=== PATIENT | female | born 1970 | race Caucasian/White ===

== ENCOUNTER 2021-07-26 09:32 | Outpatient (REF) | payer OTHER, SELFPAY ==
[2021-07-26 11:31] LABS: Appearance Urine CLOUDY; Color Urine YELLOW; Glucose Urine UA NEG (NEG); Leukocyte Esterase Urine NEG (NEG); Nitrite Urine NEG (NEG); PH 5.5 (5.0-8.0); Specific Gravity - Urine >= 1.030 (1.005-1.025); Urine Blood NEG (NEG); Urine Ketones NEG (NEG); Urine Protein NEG (NEG-TRACE)
[2021-07-26 11:31] LABS: Hematocrit 42.2 % (37.0-47.0); Hemoglobin 14.1 g/dl (12.0-16.0); Mean Corpuscular HGB Conc 33.4 g/dl (31.0-35.0); Mean Corpuscular Hemoglobin 30.1 pg (27.0-33.0); Mean Platelet Volume 9.7 fL (9.4-12.3); Platelet Count 238 X10*3/uL (160-400); Red Blood Count 4.69 X10*6/uL (4.20-5.50); Red Cell Distribution Width 12.2 % (11.0-16.0); White Blood Count 4.5 X10*3/uL (4.8-10.8)
[2021-07-26 11:52] LABS: Amorphous Sediment Urine 4+ /LPF; RBC Urine 0 /HPF (0); Squamous Epithelial Cell Urine 1+ /LPF; WBC Urine 0-2 /HPF (0-4)
[2021-07-26 11:59] LABS: Alanine Aminotransferase 28 U/L (0-31); Albumin Level 4.2 g/dL (3.5-5.0); Alkaline Phosphatase 61 U/L (39-117); Anion Gap 13 (12-20); Aspartate Amino Transferase 26 U/L (5-31); Bilirubin Total 0.8 mg/dL (0.0-1.0); Blood Urea Nitrogen 16 mg/dL (9-16); Calcium 9.2 mg/dL (8.4-10.2); Carbon Dioxide 26 mmol/L (22-29); Chloride 107 mmol/L (96-108); Cholesterol 198 mg/dL; Estimated Glomerular Filt Rate > 60; Glucose Fasting 89 mg/dL (60-99); HDL Cholesterol 56 mg/dL; LDL Cholesterol Calculated 128 mg/dl; Potassium 4.4 mmol/L (3.3-5.1); Sodium 142 mmol/L (135-145); Total Protein 6.6 g/dL (6.5-8.0); Triglycerides 73 mg/dL
[2021-07-26 12:22] LABS: TSH reflex Free T4 1.08 uIU/mL (0.32-4.0)
== END 2021-07-26 09:33 | disposition home or self-care (01) ==
LOC: HO.HMGCLDS 09:32
PROVIDERS: PCP Internal Medicine; Visit Provider Internal Medicine
DX: Z00.00 Encounter for general adult medical examination without abnormal findings (principal)
CPT/HCPCS: 36415; 80053; 80061; 81001; 84443; 85027

== ENCOUNTER 2021-08-01 12:00 | Outpatient (REF) | payer OTHER, SELFPAY ==
[2021-08-05 21:50] LABS: HPV mRNA E6/E7 Not Detected (Not Detected)
== END 2021-08-01 12:01 | disposition home or self-care (01) ==
LOC: HO.LAB 12:00
PROVIDERS: Visit Provider Internal Medicine
DX: Z12.4 Encounter for screening for malignant neoplasm of cervix (principal); Z11.51 Encounter for screening for human papillomavirus (HPV)
CPT/HCPCS: 87624; 88142

== ENCOUNTER 2021-08-29 08:41 | Outpatient (REF) | payer OTHER, SELFPAY ==
--- NOTE | ~2021-08-29 | US_ITS ---
EXAMINATION: US SOFT TISSUE NECK CLINICAL INFORMATION: Swelling of the left submandibular gland COMPARISON: None TECHNIQUE: Ultrasound of the neck soft tissues is performed with high- frequency bunn-scale imaging and color Doppler. FINDINGS: In the patient's area of concern of the left neck, there are multiple small lymph nodes with normal morphology. The largest measures 0.8 cm. In the contralateral area of the right neck, there are multiple lymph nodes with normal morphology. Incidental note is made of a 0.9 cm heterogeneous thyroid nodule. US/US soft tiss head and/or neck IMPRESSION: 1. Bilateral cervical lymph nodes. 2. Right thyroid nodule. Consider dedicated thyroid ultrasound for further evaluation if warranted.
== END 2021-08-29 08:42 | disposition home or self-care (01) ==
LOC: HO.HMGCX 08:41
PROVIDERS: Visit Provider Internal Medicine
DX: R60.9 Edema, unspecified (principal)
CPT/HCPCS: 76536

== ENCOUNTER 2021-11-08 10:15 | Outpatient (REF) | payer OTHER, SELFPAY ==
--- NOTE | ~2021-11-08 | MM_ITS ---
EXAMINATION: MM SCREENING DIGITAL BREAST TOMOSYNTHESIS, BILATERAL CLINICAL INFORMATION: Screening. Asymptomatic. The lifetime risk of breast cancer based on the Tyrer-Cuzick Model is 10%. COMPARISON: Mammography: 07/12/2015 , 08/01/2013, 07/28/2012 TECHNIQUE: Digital breast tomosynthesis is performed in both the craniocaudal and mediolateral oblique views along with computer-aided detection (CAD). Synthesized 2D images are generated from the tomosynthesis. Additional left CC view is provided. FINDINGS: There are scattered areas of fibroglandular density (ACR BI-RADS breast composition Category b). The right breast is similar to prior studies. There is no interval mass or architectural abnormality or developing density. Neither breast shows abnormal calcifications. The bilateral axilla and skin contours are unremarkable. Left breast has focal nodular asymmetric density posterior upper outer quadrant on tomography measuring around 1.2 cm size and approximately 12 cm from nipple. Margins are incompletely defined. This could represent intramammary node. Chronicity is uncertain, possibly obscured by overlying parenchyma on remote prior standard mammography without tomography. MM/MM tomosynthesis screening BI IMPRESSION: 1. Left: Focal nodular asymmetric density posterior upper outer left breast on tomography. 2. Right: No mammographic evidence of malignancy. ASSESSMENT: BI-RADS 0: Incomplete - Need Additional Imaging Evaluation RECOMMENDATION: 1. Additional views of the left breast (spot exaggerated CC, spot MLO). 2. Targeted ultrasound if warranted after review of the additional views. 3. Radiology department staff will contact the patient for additional imaging. This patient's information was entered into a reminder system with a target due date for their next mammogram.
== END 2021-11-08 10:16 | disposition home or self-care (01) ==
LOC: HO.MAMMO 10:15
PROVIDERS: PCP Internal Medicine; Visit Provider Internal Medicine
DX: Z12.31 Encounter for screening mammogram for malignant neoplasm of breast (principal)
CPT/HCPCS: 77063; 77067

== ENCOUNTER 2021-11-28 14:33 | Outpatient (REF) | payer OTHER, SELFPAY ==
--- NOTE | ~2021-11-28 | US_ITS ---
EXAMINATION: MM DIAGNOSTIC DIGITAL BREAST TOMOSYNTHESIS, LEFT US DIAGNOSTIC ULTRASOUND BREAST, LEFT CLINICAL INFORMATION: Recall from screening for focal nodular asymmetric density posterior upper outer quadrant, possibly obscured by overlying parenchyma on remote prior standard mammography. COMPARISON: Mammography: 11/08/2021, 07/12/2015, 08/01/2013 TECHNIQUE: Digital breast tomosynthesis is performed. 2D images are generated from the tomosynthesis. The following views are obtained: Spot exaggerated CC x2, spot MLO. Ultrasound left breast is targeted to the upper outer quadrant. Grayscale imaging and color Doppler are performed without and with harmonics. FINDINGS: There are scattered areas of fibroglandular density (ACR BI-RADS breast composition Category b). There is a macrolobulated density in the posterior upper outer left breast corresponding to recent screening exam. No spiculation or associated calcification. It is difficult to determine if the finding was present on prior remote exams prior to embolization of tissue. This area may have been obscured on prior mammography. Targeted ultrasound upper outer left breast demonstrates no cystic or solid mass or intramammary node. No architectural abnormality. No ultrasound correlate. Results are discussed with the patient at time of visit. Management plan is for 6 month follow-up diagnostic left mammography. US/US breast LT limited IMPRESSION: Macrolobulated asymmetric density posterior upper outer left breast possibly obscured by overlying tissue on prior remote standard mammography. No spiculation or associated calcification. No ultrasound correlate. ASSESSMENT: BI-RADS 3: Probably Benign RECOMMENDATION: Diagnostic left mammography in 6 months. This patient's information was entered into a reminder system with a target due date for their next mammogram.
== END 2021-11-28 14:34 | disposition home or self-care (01) ==
LOC: HO.MAMMO 14:33
PROVIDERS: PCP Internal Medicine; Visit Provider Internal Medicine
DX: R92.2 Inconclusive mammogram (principal)
CPT/HCPCS: 76642; 77065

== ENCOUNTER → 2022-01-09 09:48 | Outpatient (BNVA) | payer OTHER, SELFPAY | PROVIDERS: PCP Internal Medicine; Referring Provider Internal Medicine; Visit Provider Nurse Practitioner | DX: Z01.818 Encounter for other preprocedural examination (principal) | CPT/HCPCS: 99202 ==

== ENCOUNTER 2022-05-29 13:49 | Outpatient (REF) | payer OTHER, SELFPAY ==
--- NOTE | ~2022-05-29 | MM_ITS ---
EXAMINATION: MM DIAGNOSTIC DIGITAL BREAST TOMOSYNTHESIS, LEFT CLINICAL INFORMATION: Short interval six-month follow-up focal nodular asymmetric density posterior upper outer left breast likely beyond field of view on more remote previous imaging. TC score 9%. No known family history breast cancer. COMPARISON: Mammography: 11/28/2021, 11/08/2021 (BI-RADS 0), 07/12/2015, 08/01/2013, 07/28/2012; left breast ultrasound 11/28/2021. TECHNIQUE: Digital breast tomosynthesis is performed in both the craniocaudal and mediolateral oblique views along with computer-aided detection (CAD). Synthesized 2D images are generated from the tomosynthesis. Additional left CC view is provided. FINDINGS: There are scattered areas of fibroglandular density (ACR BI-RADS breast composition Category b). Parenchymal pattern is similar to prior exam. The focal nodular asymmetric density posterior upper outer quadrant is stable from prior diagnostic exam. It is likely obscured by overlying fibroglandular tissue on more remote prior left MLO views and beyond field of view on prior remote left CC views. There is no developing density or interval architectural abnormality. Results are provided to the patient at time of visit by the technologist. MM/MM tomosynthesis diagnostic LT IMPRESSION: Stable focal asymmetric density posterior upper outer left breast, similar to prior diagnostic exam. ASSESSMENT: BI-RADS 3: Probably Benign RECOMMENDATION: Diagnostic mammography at time of bilateral annual mammography, due in 6 months. This patient's information was entered into a reminder system with a target due date for their next mammogram.
== END 2022-05-29 13:50 | disposition home or self-care (01) ==
LOC: HO.MAMMO 13:49
PROVIDERS: Visit Provider Internal Medicine
DX: R92.2 Inconclusive mammogram (principal)
CPT/HCPCS: 77061; 77065

== ENCOUNTER 2022-11-12 09:28 | Outpatient (REF) | payer OTHER, SELFPAY ==
--- NOTE | ~2022-11-12 | XR_ITS ---
EXAMINATION: XR CHEST CLINICAL INFORMATION: Cough. COMPARISON: None TECHNIQUE: 2 views of the chest were obtained. FINDINGS: No significant abnormality is noted involving the heart, lungs, mediastinum, bony thorax or soft tissues. XR/XR chest 2V IMPRESSION: No acute cardiopulmonary process.
--- NOTE | ~2022-11-12 | XR_ITS ---
EXAMINATION: XR SINUSES CLINICAL INFORMATION: Cough COMPARISON: None TECHNIQUE: 3 views of the sinuses were obtained. FINDINGS: Paranasal sinuses appear clear without air-fluid levels. No fractures are identified. No radiodense foreign bodies. XR/XR sinus min 3V IMPRESSION: Unremarkable examination.
[2022-11-12 11:19] LABS: MANUAL DIFF FLAG NO
[2022-11-12 11:43] LABS: Basophils Absolute Auto 0.1 X10*3/uL (0.0-0.2); Basophils Percent Auto 1.1 % (0-2); Eosinophils Absolute Auto 0.4 X10*3/uL (0.0-0.4); Eosinophils Percent Auto 7.3 % (0-4); Hematocrit 45.8 % (37.0-47.0); Hemoglobin 15.1 g/dl (12.0-16.0); Imm Gran Abs Auto 0.01 X10*3/uL (0.00-0.03); Imm Gran Pct Auto 0.2 % (0.0-0.4); Lymphocytes Absolute Auto 1.7 X10*3/uL (1.2-4.9); Lymphocytes Percent Auto 29.8 % (20-40); Mean Corpuscular Hemoglobin 29.8 pg (27.0-33.0); Mean Corpuscular Volume 90.5 fL (80.0-98.0); Mean Platelet Volume 9.8 fL (9.4-12.3); Monocytes Absolute Auto 0.6 X10*3/uL (0.1-1.2); Monocytes Percent Auto 9.8 % (2-11); Neutrophils Absolute Auto 2.9 x10*3/uL (2.0-8.3); Neutrophils Percent Auto 51.8 % (45-73); Platelet Count 282 X10*3/uL (160-400); Red Blood Count 5.06 X10*6/uL (4.20-5.50); White Blood Count 5.6 X10*3/uL (4.8-10.8)
[2022-11-12 12:11] LABS: Alanine Aminotransferase 57 U/L (0-31); Albumin Level 4.2 g/dL (3.5-5.0); Alkaline Phosphatase 71 U/L (39-117); Anion Gap 11 (12-20); Aspartate Amino Transferase 33 U/L (5-31); Bilirubin Total 0.9 mg/dL (0.0-1.0); Blood Urea Nitrogen 14 mg/dL (9-16); Calcium 9.3 mg/dL (8.4-10.2); Carbon Dioxide 28 mmol/L (22-29); Chloride 106 mmol/L (96-108); Estimated Glomerular Filt Rate > 60; Glucose Fasting 120 mg/dL (60-99); Potassium 4.4 mmol/L (3.3-5.1); Sodium 141 mmol/L (135-145); Total Protein 6.8 g/dL (6.5-8.0)
[2022-11-12 12:21] LABS: Erythrocyte Sedimentation Rate 4 MM/HR (0-20)
== END 2022-11-12 09:29 | disposition home or self-care (01) ==
LOC: HO.HMGCX 09:28
PROVIDERS: PCP Internal Medicine; Visit Provider Internal Medicine
DX: J32.9 Chronic sinusitis, unspecified (principal); R05.9 Cough, unspecified
CPT/HCPCS: 36415; 70220; 71046; 80053; 85025; 85652

== ENCOUNTER 2022-11-27 11:25 | Outpatient (REF) | payer OTHER, SELFPAY ==
--- NOTE | ~2022-11-27 | US_ITS ---
EXAMINATION: US SOFT TISSUE NECK CLINICAL INFORMATION: Edema, unspecified. Submandibular glands question swollen. COMPARISON: Ultrasound soft tissue neck 08/29/2021 TECHNIQUE: Ultrasound of the neck soft tissues is performed with high- frequency bunn-scale imaging and color Doppler. FINDINGS: The right subphrenic gland is homogeneous echotexture without enlargement or echogenic calcifications. There is a small lymph node adjacent to the submandibular gland measuring 1.4 x 0.72 x 2.1 cm and central echogenic medulla. A second smaller lymph node measures 0.7 x 0.42 x 0.64 cm. It has benign characteristics as well. Left submandibular gland is homogeneous echotexture without focal lesions or echogenic calcifications. There is small lymph node adjacent to the sublingual gland with echogenic medulla measuring 1.1 x 0.90 x 0.51 cm. Second lymph node slightly smaller and measures 0.86 x 0.38 x 1.1 cm. Third lymph node measures 0.68 x 1.8 x 1.2 cm. US/US soft tiss head and/or neck IMPRESSION: 1. Normal bilateral submandibular glands. 2. Normal bilateral neck lymph nodes adjacent to the submandibular gland. 3. If clinically indicated further evaluation of the neck soft tissues and nodes may be performed with CT soft tissue neck with intravenous contrast.
== END 2022-11-27 11:26 | disposition home or self-care (01) ==
LOC: HO.HMGCX 11:25
PROVIDERS: PCP Internal Medicine; Visit Provider Internal Medicine
DX: R59.9 Enlarged lymph nodes, unspecified (principal); R60.9 Edema, unspecified
CPT/HCPCS: 76536

== ENCOUNTER 2022-11-27 13:45 | Outpatient (REF) | payer OTHER, SELFPAY ==
--- NOTE | ~2022-11-27 | MM_ITS ---
EXAMINATION: MM DIAGNOSTIC DIGITAL BREAST TOMOSYNTHESIS, BILATERAL CLINICAL INFORMATION: Six-month follow-up left breast density. Yearly right breast study. The lifetime risk of breast cancer based on the Tyrer-Cuzick Model is 8.7%. COMPARISON: Mammography: 05/29/2022 and studies dating back to 08/01/2013. TECHNIQUE: Digital breast tomosynthesis is performed in both the craniocaudal and mediolateral oblique views along with computer-aided detection (CAD). Synthesized 2D images are generated from the tomosynthesis. FINDINGS: There are scattered areas of fibroglandular density (ACR BI-RADS breast composition Category b). There are no new significant masses, abnormal calcifications, or other abnormalities. There is a stable circumscribed density about the deep upper outer aspect of the left breast measuring approximately 1.6 x 1.0 cm in size. Recommend 6 month follow-up diagnostic left breast mammography. Results are provided to the patient at time of visit by the technologist. MM/MM tomosynthesis diagnostic BI IMPRESSION: There are no significant changes from prior study. ASSESSMENT: BI-RADS 3: Probably Benign RECOMMENDATION: Diagnostic mammography in 6 months. This patient's information was entered into a reminder system with a target due date for their next mammogram.
== END 2022-11-27 13:46 | disposition home or self-care (01) ==
LOC: HO.MAMMO 13:45
PROVIDERS: PCP Internal Medicine; Visit Provider Internal Medicine
DX: R92.2 Inconclusive mammogram (principal)
CPT/HCPCS: 77062; 77066

== ENCOUNTER 2023-06-04 11:40 | Outpatient (REF) | payer OTHER, SELFPAY ==
--- NOTE | ~2023-06-04 | MM_ITS ---
EXAMINATION: MM DIAGNOSTIC DIGITAL BREAST TOMOSYNTHESIS, LEFT CLINICAL INFORMATION: Patient presents for 6 month mammographic follow-up in the upper outer quadrant left breast focal asymmetry. This study is compared with the prior short interval examinations from 11/27/2022, 05/29/2022 and the initial diagnostic left mammogram from 11/28/2021. Comparison is also made with prior studies dating back to 2014. COMPARISON: Mammography: This study is compared with multiple prior mammograms dating back to 2014. TECHNIQUE: Digital breast tomosynthesis is performed in both the craniocaudal and mediolateral oblique views along with computer-aided detection (CAD). Synthesized 2D images are generated from the tomosynthesis. Additional diagnostic views of the left breast consistent with a full lateral view and a focal laterally exaggerated craniocaudal view. This study is performed with separate 2-D and tomosynthesis. FINDINGS: There are scattered areas of fibroglandular density (ACR BI-RADS breast composition Category b). There are no significant masses, abnormal calcifications, or other abnormalities. The previously noted focal asymmetry of the upper outer quadrant of the left breast consists of a normal intramammary lymph node and glandular tissue showing gradual fatty involution scratch that. There are no mammographic signs of malignancy. The patient should resume routine annual screening mammography of both breasts. This is due in November 2023. MM/MM tomosynthesis diagnostic LT IMPRESSION: No mammographic evidence of malignancy. ASSESSMENT: BI-RADS BI-RADS 1 - Negative RECOMMENDATION: 1 year F/U The next bilateral routine annual screening mammogram is due in November 2023. Results were provided to the patient at time of visit by the technologist. This patient's information was entered into a reminder system with a target due date for their next mammogram.
== END 2023-06-04 11:41 | disposition home or self-care (01) ==
LOC: HO.MAMMO 11:40
PROVIDERS: PCP Internal Medicine; Visit Provider Internal Medicine
DX: N64.89 Other specified disorders of breast (principal)
CPT/HCPCS: 77061; 77065

== ENCOUNTER 2023-12-03 12:49 | Outpatient (REF) | payer OTHER, SELFPAY ==
--- NOTE | ~2023-12-03 | MM_ITS ---
EXAMINATION: MM SCREENING DIGITAL BREAST TOMOSYNTHESIS, BILATERAL CLINICAL INFORMATION: Screening. Asymptomatic. COMPARISON: Mammography: Most recently 06/04/2023, 11/27/2022, and dating back to 07/12/2015. TECHNIQUE: Digital breast tomosynthesis is performed in both the craniocaudal and mediolateral oblique views along with computer-aided detection (CAD). Synthesized 2D images are generated from the tomosynthesis. An added left full-field left CC view was provided for nipple in profile. FINDINGS: There are scattered areas of fibroglandular density (ACR BI-RADS breast composition Category b). There is a stable intramammary lymph node in the far lateral upper left breast posterior one third. There are no suspicious masses, suspicious grouped calcifications, or areas of architectural distortion in either breast. Unchanged mild parenchymal asymmetry in the upper outer left breast. The parenchymal pattern is stable from prior exams. MM/MM tomosynthesis screening BI IMPRESSION: No mammographic evidence of malignancy. -Stable benign findings. ASSESSMENT: BI-RADS BI-RADS 2 - Benign Findings RECOMMENDATION: Routine annual mammography screening. 1 year F/U This examination should not preclude the clinical evaluation of a suspicious palpable abnormality. This patient's information was entered into a reminder system with a target due date for their next mammogram.
== END 2023-12-03 12:50 | disposition home or self-care (01) ==
LOC: HO.MAMMO 12:49
PROVIDERS: PCP Internal Medicine; Visit Provider Internal Medicine
DX: Z12.31 Encounter for screening mammogram for malignant neoplasm of breast (principal)
CPT/HCPCS: 77063; 77067

== ENCOUNTER → 2023-12-03 13:00 | Outpatient (BNV) | payer OTHER, SELFPAY | PROVIDERS: PCP Internal Medicine; Visit Provider Radiology Diagnostic Radiology | DX: Z12.31 Encounter for screening mammogram for malignant neoplasm of breast (principal) | CPT/HCPCS: 77063; 77067 ==

== ENCOUNTER 2024-04-22 09:57 | Outpatient (REF) | payer OTHER, SELFPAY ==
--- NOTE | ~2024-04-22 | XR_ITS ---
EXAMINATION: XR LUMBOSACRAL SPINE CLINICAL INFORMATION: Sciatica, unspecified side COMPARISON: None available. TECHNIQUE: Three views of the lumbosacral spine. FINDINGS: The vertebral bodies and posterior elements are normal. The disc spaces are preserved and the vertebral alignment is normal. 0.7 cm calcific density seen in the left upper to mid abdomen. This is possibly related to the left kidney. XR/XR lumbar spine 2-3V IMPRESSION: 1. No bony abnormality. 2. 0.7 cm calcific density seen in the left upper to mid abdomen. This is possibly related to the left kidney. Renal ultrasound or CT scan of the abdomen could be obtained for further evaluation. Electronically signed by: Dyana Diaz MD 05/11/2024 08:38 AM EDT
== END 2024-04-22 09:58 | disposition home or self-care (01) ==
LOC: HO.HMGCX 09:57
PROVIDERS: PCP Internal Medicine; Visit Provider Internal Medicine
DX: M54.30 Sciatica, unspecified side (principal)
CPT/HCPCS: 72100

== ENCOUNTER 2024-05-10 13:41 | Outpatient (AMB) | payer OTHER, SELFPAY ==
--- NOTE | 2024-05-10 13:45 | MHC.PC.OV ---
Vital Signs 05/10/24 13:46 Height 5 ft 4 in Weight 208 lb BMI 35.7 BP 110/70 Blood Pressure Location Rt brachial Position Sitting Pulse 67 Pulse Source Pulse Oximeter Pulse Oximetry (%) 97 Oxygen Delivery Method Room Air Intake Visit Reasons: PE Intake Note: Pt is here today for PE. Allergies No Known Drug Allergies [NO KNOWN DRUG ALLERGIES] Allergy (Mild, Unverified 05/10/24 13:48) NONE Medication List - Last Reconciled 05/10/24 by Yamilex Watson MD baclofen 10 mg PO BID fluticasone propionate 50 mcg/actuation 1 spray intranasal BID PRN meloxicam 15 mg PO DAILY Tobacco use date assessed: 05/10/24 Dental Screening Dental Screen Date: 05/10/24 Did you have a dental visit in the last 12 months?: Yes Did you have a dental problem in the last 6 months where you did not have access to dental care?: No Was dental information given to patient?: Patient has dentist HPI PE HPI Details Pt presents for PE. She reports episodes of witnessed sleep apnea and loud snoring. [facility]LY [facility] Medical History Submandibular gland swelling Annual physical exam Social History Housing: House Patient Tobacco Use Status: Current someday Tobacco user Cigarettes Per Day: 2 Years Smoked: 16 years old e-Cigarette/Vaping Use: Never Used service: No Current occupational status: employed Cognitive needs: No Hearing needs: No Vision needs: No Questionnaire PHQ-9 Over the last 2 weeks, how often have you been bothered by any of the following problems? 1. Little interest or pleasure in doing things: not at all 2. Feeling down, depressed, or hopeless: nearly every day 3. Trouble falling or staying asleep, or sleeping too much: several days 4. Feeling tired or having little energy: not at all 5. Poor appetite or overeating: not at all 6. Feeling bad about yourself - or that you are a failure or have let yourself or your family down: not at all 7. Trouble concentrating on things, such as reading the newspaper or watching television: not at all 8. Moving or speaking so slowly that other people could have noticed. Or the opposite - being so fidgety or restless that you have been moving around a lot more than usual: not at all 9. Thoughts that you would be better off or of hurting yourself in some way: not at all Total score: 4 Depression Screening Interpretation: Negative Depression Screening Done: Yes 80854 - PHQ-9 Billing: Yes Source: Developed by Drs. Sebastian Philippe, Stephanie Browne, Yung Guido and colleagues, with an educational radha from [employer]. Thrive Questionnaire Date Thrive assessed: 05/10/24 I am a: Patient What is your living situation today?: I have a steady place to live Within the past 12 months, did the food you bought not last and you didn't have the money to get more?: I choose not to answer this question Within the past 12 months, did you worry whether your food would run out before you got money to buy more?: Never true Do you have trouble paying for medicines?: No Do you have trouble getting transportation to medical appointments?: No Do you have trouble paying your heating and electricity bill?: No Do you have trouble taking care of your child, family member or friend?: No Do you have trouble with day-to-day activities such as bathing, preparing meals, shopping, managing finances, etc.?: No Are you currently unemployed and looking for a job?: No Are you interested in more education?: No Please select the resources that you would like help with: None Currently or been in a relationship where the following occur: I choose not to answer THRIVE Score: 0 AUDIT C Alcohol Use Questionnaire (AUDIT-C) 1. How often do you have a drink containing alcohol?: Monthly or less 2. How many drinks containing alcohol do you have on a typical day when you are drinking?: 1 or 2 3. How often do you have six or more drinks on one occasion?: Less than monthly Total Score: 2 JEAN PAUL-7 AMB Questionnaire JEAN PAUL-7 Date JEAN PAUL - 7 assessed: 05/10/24 Feeling nervous, anxious, or on edge: 0 = Not at all Not being able to stop or control worryin = Not at all Worrying too much about different things: 0 = Not at all Trouble relaxin = Not at all Being so restless that it is hard to sit still: 0 = Not at all Becoming easily annoyed or irritable: 0 = Not at all Feeling afraid as if something awful might happen: 0 = Not at all Total JEAN PAUL-7 score (0-4 normal; 5-9 mild; 10-14 moderate; 15-21 severe): 0 Source: Developed by Drs. Sebastian Philippe, Stephanie Browne, Yung Guido and colleagues, with an educational radha from [employer]. JEAN PAUL-7 Assessment Billing JEAN PAUL-7 Assessment Tool: JEAN PAUL-7 Assessment 78910 Review of Systems Const All systems reviewed & are unremarkable except as noted in HPI and below Reports no additional complaints Eyes Reports no additional complaints ENT Reports no additional complaints Card Reports no additional complaints Resp Reports no additional complaints GI Reports no additional complaints Reports no additional complaints Physical exam (Primary Care) Vital Signs: Last Vital Signs Pulse 67 05/10/24 13:46 BP 110/70 05/10/24 13:46 Pulse Ox 97 05/10/24 13:46 Oxygen Delivery Method Room Air 05/10/24 13:46 BMI result Body Mass Index 35.7 Tobacco/Smoking Status: Tobacco use Status Tobacco use date assessed 05/10/24 05/10/24 13:55 Patient Tobacco Use Status Current someday Tobacco 05/10/24 13:48 e-Cigarette/Vaping Use Never Used 05/10/24 13:48 PHQ-9: PHQ-9 Score PHQ-9: Total score 4 05/10/24 13:55 Depression Screening Interpretation: Negative Thrive Assessment: Date of Thrive Assessment Date Thrive assessed 05/10/24 05/10/24 13:55 Currently or been in a relationship where the following occur: I choose not to answer Const General: no acute distress HENMT Head: Yes normal to inspection General nose exam: Normal external nose present Mouth: Normal oral and palatal mucosa present Eyes General: appearance normal, both eyes and all related structures Neck Neck: Yes no lymphadenopathy and Yes supple Resp Effort & Inspection: normal respiratory effort Auscultation: clear to auscultation bilaterally Cardio Rhythm: regular rhythm Heart sounds: S1 normal heart sound present and S2 normal heart sound present GI Inspection: Yes normal to inspection Palpation (GI): Soft to palpation Percussion: Yes normal to percussion Auscultation: normal bowel sounds Assessment and Plan Assessment & Plan (1) Annual physical exam: Code(s): Z00.00 - Encounter for general adult medical examination without abnormal findings Plan: WELL-BALANCED DIET REGULAR EXERCISE DISCUSSED WITH THE PATIENT. SHE WILL RETURN FOR FASTING BLOOD WORK. Patient is up-to-date with the mammogram and will be referred to GI for colonoscopy. (2) Sleep apnea: Code(s): G47.30 - Sleep apnea, unspecified Plan: Obtain sleep studies to evaluate for sleep as Orders: Orders [facility] [place]. Panel Fast Today Z00.00 - Encounter for general adult medical examination without abnormal findings UA w Microscopic Today Z00.00 - Encounter for general adult medical examination without abnormal findings RT home sleep study Today G47.30 - Sleep apnea, unspecified Comprehensive [place]. Panel Fast 1 Year Z00.00 - Encounter for general adult medical examination without abnormal findings Complete Blood Count Auto Diff 1 Year Z.00 - Encounter for general adult medical examination without abnormal findings Lipid Panel Today Z00.00 - Encounter for general adult medical examination without abnormal findings Complete Blood Count Auto Diff Today Z00.00 - Encounter for general adult medical examination without abnormal findings TSH reflex Free T4 Today Z00.00 - Encounter for general adult medical examination without abnormal findings Lipid Panel 1 Year Z00.00 - Encounter for general adult medical examination without abnormal findings TSH reflex Free T4 1 Year Z00.00 - Encounter for general adult medical examination without abnormal findings Referrals Gastroenterology Referral Z00.00 - Encounter for general adult medical examination without abnormal findings Medications: Refilled meloxicam 15 mg PO DAILY 30 tabs 0RF Discontinued baclofen Discontinued Reason: Doctor's Order 10 mg PO BID 60 tabs 0RF Coding Level of Care Code Est Pt Prev Care 40-64y(84284) Diagnoses Annual physical exam Z00.00 Sleep apnea G47.30 Additional Codes JEAN PAUL-7 Assessment Billing - JEAN PAUL-7 Assessment Tool: JEAN PAUL-7 Assessment [id number] ([id number])
[2024-05-10 13:46] VITALS: BP 110/70; PULSE 67; O2SAT 97; BMI 35.7
== END 2024-05-10 14:41 | disposition home or self-care (01) ==
PROVIDERS: PCP Internal Medicine; Visit Provider Internal Medicine
DX: Z00.00 Encounter for general adult medical examination without abnormal findings (principal); G47.30 Sleep apnea, unspecified
CPT/HCPCS: 99396

== ENCOUNTER 2024-05-12 09:30 | Outpatient (REF) | payer OTHER, SELFPAY ==
[2024-05-12 13:28] LABS: MANUAL DIFF FLAG NO
[2024-05-12 13:36] LABS: Basophils Percent Auto 0.8 % (0-2); Eosinophils Absolute Auto 0.4 X10*3/uL (0.0-0.4); Eosinophils Percent Auto 8.1 % (0-4); Hematocrit 43.6 % (37.0-47.0); Hemoglobin 14.4 g/dl (12.0-16.0); Imm Gran Abs Auto 0.01 X10*3/uL (0.00-0.03); Imm Gran Pct Auto 0.2 % (0.0-0.4); Lymphocytes Absolute Auto 1.7 X10*3/uL (1.2-4.9); Lymphocytes Percent Auto 33.9 % (20-40); Mean Corpuscular Hemoglobin 30.4 pg (27.0-33.0); Monocytes Absolute Auto 0.5 X10*3/uL (0.1-1.2); Neutrophils Absolute Auto 2.3 x10*3/uL (2.0-8.3); Platelet Count 234 X10*3/uL (160-400); Red Blood Count 4.74 X10*6/uL (4.20-5.50); Red Cell Distribution Width 12.7 % (11.0-16.0); White Blood Count 4.9 X10*3/uL (4.8-10.8)
[2024-05-12 13:38] LABS: Appearance Urine Clear; Color Urine Yellow; Glucose Urine UA Negative (Negative); Leukocyte Esterase Urine Moderate (2+) (Negative); Nitrite Urine Negative (Negative); PH 6.5 (5.0-9.0); UMIC TRIGGER UA YES; Urine Blood Negative (Negative); Urine Ketones Negative (Negative); Urine Protein Negative (Neg-Trace)
[2024-05-12 13:43] LABS: Bacteria Urine None Seen (None Seen); Hyaline Casts Urine 0-2 /LPF (0-2); RBC Urine 0-2 /HPF (0-2)
[2024-05-12 14:31] LABS: Alanine Aminotransferase 24 U/L (0-31); Alkaline Phosphatase 60 U/L (39-117); Anion Gap 8 (12-20); Aspartate Amino Transferase 21 U/L (5-31); Bilirubin Total 0.5 mg/dL (0.0-1.0); Blood Urea Nitrogen 22 mg/dL (9-16); Calcium 9.6 mg/dL (8.4-10.2); Carbon Dioxide 29 mmol/L (22-29); Chloride 110 mmol/L (96-108); Cholesterol 210 mg/dL (<200); Estimated Glomerular Filt Rate > 60; Glucose Fasting 114 mg/dL (60-99); HDL Cholesterol 56 mg/dL (>40); LDL Cholesterol Calculated 138 mg/dL (<100); Potassium 4.8 mmol/L (3.3-5.1); Sodium 142 mmol/L (135-145); Total Protein 6.6 g/dL (6.5-8.0); Triglycerides 82 mg/dL (<150)
[2024-05-12 14:38] LABS: TSH reflex Free T4 1.56 uIU/mL (0.32-4.0)
== END 2024-05-12 09:31 | disposition home or self-care (01) ==
LOC: HO.HMGCLDS 09:30
PROVIDERS: PCP Internal Medicine; Visit Provider Internal Medicine
DX: Z00.00 Encounter for general adult medical examination without abnormal findings (principal)
CPT/HCPCS: 36415; 80053; 80061; 81001; 84443; 85025

== ENCOUNTER 2024-05-19 15:28 | Outpatient (REF) | payer OTHER, SELFPAY ==
--- NOTE | ~2024-05-19 | US_ITS ---
EXAMINATION: US RETROPERITONEAL LIMITED (RENAL ONLY) CLINICAL INFORMATION: Calculus of kidney. COMPARISON: None available. TECHNIQUE: Real-time imaging of the kidneys. FINDINGS: RIGHT KIDNEY: 9.8 x 5.0 x 5.6 cm (SAG x AP x TRV). The kidney is normal in size, contour, and echogenicity. Renal cortical thickness is normal. No calculi or focal parenchymal lesions. No hydronephrosis. LEFT KIDNEY: 11.8 x 5.0 x 5 point cm (SAG x AP x TRV). The kidney is normal in size, contour, and echogenicity. Renal cortical thickness is normal. No calculi or focal parenchymal lesions. No hydronephrosis. Incidental note made of an echogenic liver consistent with hepatic steatosis. US/US renal BI IMPRESSION: Normal-appearing kidneys without nephrolithiasis. Incidentally noted hepatic steatosis. Electronically signed by: George Atkins MD 05/31/2024 12:29 PM EDT
== END 2024-05-19 15:29 | disposition home or self-care (01) ==
LOC: HO.HMGCX 15:28
PROVIDERS: PCP Internal Medicine; Visit Provider Internal Medicine
DX: N20.0 Calculus of kidney (principal)
CPT/HCPCS: 76775

== ENCOUNTER → 2024-08-01 15:47 | Outpatient (REF) | payer OTHER, SELFPAY | LOC: HO.SL 15:47 | PROVIDERS: PCP Internal Medicine; Visit Provider Internal Medicine | DX: G47.30 Sleep apnea, unspecified (principal) | CPT/HCPCS: 95806 ==

== ENCOUNTER → 2024-08-05 10:19 | Outpatient (BNV) | payer OTHER, SELFPAY | PROVIDERS: PCP Internal Medicine; Visit Provider Internal Medicine | DX: G47.33 Obstructive sleep apnea (adult) (pediatric) (principal) | CPT/HCPCS: 95806 ==

== ENCOUNTER 2024-12-08 13:15 | Outpatient (REF) | payer OTHER, SELFPAY | END 2024-12-08 13:16 | disposition home or self-care (01) | LOC: HO.MAMMO 13:15 | PROVIDERS: PCP Internal Medicine; Visit Provider Internal Medicine | DX: Z12.31 Encounter for screening mammogram for malignant neoplasm of breast (principal) | CPT/HCPCS: 77063; 77067 ==

== ENCOUNTER → 2024-12-08 13:30 | Outpatient (BNV) | payer OTHER, SELFPAY | PROVIDERS: PCP Internal Medicine; Visit Provider Internal Medicine | DX: Z12.31 Encounter for screening mammogram for malignant neoplasm of breast (principal) | CPT/HCPCS: 77063; 77067 ==

== ENCOUNTER 2025-01-26 10:29 | Outpatient (AMB) | payer OTHER, SELFPAY ==
--- NOTE | 2025-01-26 10:30 | MHC.OFFVIS ---
Vital Signs 01/26/25 10:37 Height 5 ft 4 in Weight 207 lb 3.752 oz BMI 35.6 BP 108/65 Blood Pressure Location Lt brachial Position Sitting Pulse 68 Intake Visit Reasons: colonoscopy screening Intake Note: Simona presents in the office as a colonoscopy screening. CC: No concerns - will be her first. Allergies No Known Drug Allergies [NO KNOWN DRUG ALLERGIES] Allergy (Mild, Unverified 05/10/24 13:48) NONE HPI HPI colonoscopy screening: Details: Assessment & Plan (1) Colon cancer screening: Code(s): Z12.11 - Encounter for screening for malignant neoplasm of colon Plan: This is her first colonoscopy. She knows she has a hemorrhoid. She has a hx of rectal cysts. She has occasional CIC and she drinks a senna tea for this with good control, no upper GI problems. There are no prior problems with anesthesia or sedation She denies any resp or cardiac problems. No ID problems Her maternal grandmother had CRC at age 95. Her father had a AAA. Medications: New peg 3350-electrolytes 236-22.74-6.74 -5.86 gram (Golytely) until fecal effluent is clear; do not exceed a total volume of 2,000 mL 240 mL PO Q10M 1 day 4,000 mL 0RF Z12.11 - Encounter for screening for malignant neoplasm of colon TODAYS VISIT Her [place] languate is [place]. No change in her health history. I saw her in 2021 and some how she was never called to schedule the procedure. This is her first colonoscopy. She knows she has a hemorrhoid. She has a hx of rectal cysts. She has occasional CIC and she drinks a senna tea for this with good control, no upper GI problems. There are no prior problems with anesthesia or sedation She denies any resp or cardiac problems. No ID problems Her maternal grandmother had CRC at age 95. [facility] Medical History (Updated 01/26/25 @ 12:12 by UZMA Leone) Upper respiratory tract infection Annual physical exam Colon cancer screening Submandibular gland swelling Family History (Updated 01/26/25 @ 10:39 by YASH Jaramillo) Father Prostate cancer Social History Housing: House Patient Tobacco Use Status: Current someday Tobacco user Cigarettes Per Day: 2 Years Smoked: 16 years old e-Cigarette/Vaping Use: Never Used service: No Current occupational status: employed Cognitive needs: No Hearing needs: No Vision needs: No Review of Systems Const Denies fatigue, Denies fever(s), Denies night sweats, Denies poor appetite and Denies weight loss ENT Reports Normal hearing present, Denies dysphagia, Denies odynophagia, Denies throat swelling and Denies tongue swelling Card Reports no additional complaints Resp Reports no additional complaints GI Details: Denies abdominal pain, Denies melena, Denies bloating, Denies hematochezia, Denies constipation, Denies GI cramping, Denies dysphagia, Denies excessive flatus, Denies early satiety, Denies heartburn, Denies diarrhea, Denies nausea, Denies odynophagia, Denies vomiting and Denies hematemesis Skin/Breast Denies pruritus, Denies lesions, Denies rash and Denies jaundice Neuro Reports Normal hearing present and Denies Abnormal speech present Endo Denies fatigue Aller/Immun Denies throat swelling and Denies tongue swelling Physical Exam Vital Signs: Last Vital Signs Pulse 68 01/26/25 10:37 BP 108/65 01/26/25 10:37 BMI result Body Mass Index 35.6 Const General: cooperative, no acute distress, well developed and well groomed Nutritional Appearance: well nourished and obese Orientation/consciousness: oriented to person, oriented to place and oriented to time Limitations: No language barrier HEENT Head: Yes normocephalic and Yes atraumatic Eyes General: appearance normal, both eyes and all related structures Pupils: Equal, round and reactive pupils present Neck Neck: Yes normal visual inspection and Yes no lymphadenopathy Thyroid: Thyroid normal Resp Effort & Inspection: normal respiratory effort and able to speak in complete sentences Auscultation: clear to auscultation bilaterally Cardio Rate: regular rate Rhythm: regular rhythm Heart sounds: Normal, physiologic split S2 sound present Peripheral pulses: radial pulses present and posterior tibial pulses present GI Inspection: No distended, Yes Abdominal panniculus present, Yes obesity and Yes striae Palpation (GI): Soft to palpation, nontender, no guarding, not rigid and No hepatosplenomegaly present Percussion: Yes normal to percussion Auscultation: normal bowel sounds Rectal Exam - Female: deferred Skin General skin exam: no rashes or lesions noted, turgor normal, skin not dry, no jaundice, No spider nevi and no striae Rashes: no rashes Nails: normal Neuro General: oriented to person, oriented to place and oriented to time Cranial nerves: Yes Equal, round and reactive pupils present and Yes Normal hearing present Speech: No Abnormal speech present Extrem General: Yes normal to inspection, No clubbing, No cyanosis and No edema Psych Appearance: grossly normal and well kempt Mental Status: mental status grossly normal Speech and movement: Normal speech and movement present Affect: normal affect Attitude: cooperative Thought process: Normal thought process present and not confabulating Thought content: Normal thought content present Insight: Good insight present (Psych) Judgement: Good judgement present (Psych) Assessment & Plan Assessment & Plan (1) Pre-op examination: Code(s): Z01.818 - Encounter for other preprocedural examination Category: Medical (2) Sleep apnea: Code(s): G47.30 - Sleep apnea, unspecified Category: Medical Plan Her [place] languate is [place]. No change in her health history. I saw her in 2021 and some how she was never called to schedule the procedure. This is her first colonoscopy. She knows she has a hemorrhoid. She has a hx of rectal cysts. She has occasional CIC and she drinks a senna tea for this with good control, no upper GI problems. There are no prior problems with anesthesia or sedation She denies any resp or cardiac problems. She has FCO. No ID problems Her maternal grandmother had CRC at age 95. Orders: Orders Complete Blood Count Auto Diff Today Z01.818 - Encounter for other preprocedural examination Colonoscopy - GI Use Only Today Z01.818 - Encounter for other preprocedural examination Comprehensive Met. Panel Today Z01.818 - Encounter for other preprocedural examination Medications: New sodium,potassium,mag sulfates 17.5-3.13-1.6 gram (Suprep Bowel Prep Kit) 480 mL orally; FOR COLONOSCOPY PREP 354 mL 0RF hydrocortisone 2.5% (Proctosol HC) BE SURE TO INCLUDE RECTAL APPICATOR!! 1 appl [place] BID 30 grams 6RF hemorrhoids K64.9 - Unspecified hemorrhoids Coding Level of Care Code New Pt Level 3 (37460) Diagnoses Pre-op examination Z01.818 Sleep apnea G47.30
[2025-01-26 10:37] VITALS: BP 108/65; PULSE 68; BMI 35.6
--- OUTSIDE RECORDS SUMMARY | 2025-01-26 10:54 | XMS_ITS | Data Portability ---
Author Organization [facility]UAN [facility] [employer] se[employer], [id number] Address [address] [place] [address] Assessment No assessment recorded. Plan of Treatment Reminders Order Date Submit Date Provider Last Modified By Organization Details Last Modified Time Details Appointments None recorded. Lab None recorded. Referral None recorded. Procedures None recorded. Surgeries None recorded. Imaging None recorded. Medication Orders benzonatate 200 mg capsule 2022 023 [id number] [address] [place] [address], [address], 3 17:50:10 prednisone 20 mg tablet 2022 023 [id number], [address] [place] [address], [address], 3 17:50:10 albuterol sulfate HFA 90 mcg/actuati on aerosol inhaler 2022 023 [id number], [address] [place], [address], 3 17:50:10 Allergy Relief (fluticason e) 50 mcg/actuati on nasal spray,suspe nsion 2022 023 [id number], [address] [place], [address], 3 17:50:11 Patient TargetsNo targets recorded. Patient Instructions Encounter Date Encounter Id Patient Instructions Last Modified By Organization Details Last Modified Time 10/26/2022 [id number] Acute Sinusitis: Care Instructions Not available 10/26/2022 17:50:06 Patient instruct ed on worsening signs and symptoms that would require further evaluation by ED or PCP such as fever of 101.0 or greater, congestion accompanied with coughing, vomiting, diarrhea, abdominal pain, decreased oral intake, lethargy, or other new symptom(s) experienced not discussed during this visit. Use humidifier and ensure good hydration. If you experience new concerning symptoms, shortness of breath, respiratory distress, or chest pain go to the ER. Use the medications prescribed. May use Decongestants if tolerated and no history of elevated blood pressure or Diabetes. Use saline nasal saline and Flonase daily for1 week. You may use tylenol for pain/fever. Do not take prednisone with Ibuprofen. Get some extra rest. When should you call for help? Call anytime you think you may need emergency care. For example, call if: You have severe trouble breathing. Call your doctor now or seek immediate medical care if: You have new or worse trouble breathing. You cough up dark brown or bloody mucus (sputum). You have a new or higher fever. You have a new rash. Watch closely for changes in your health, and be sure to contact your doctor if: You cough more deeply or more often, especially if you notice more mucus or a change in the color of your mucus. You are not getting better as expected. Not available 10/26/2022 17:50:05 Reason for Referral None Reported. Problems No Known Problems Medical Equipment None Reported. Allergies No known drug allergies Medications Name Sig Start Date Stop Date Status Note LastModified by Organization Details LastModified Time benzonatate 200 mg capsule Take 1 capsule 3 times a day by oral route as needed for 7 days. 2022 active Not Available Not Available Not Avai lable prednisone 20 mg tablet Take 2 tablets every day by oral route in the morning for 5 days. 2022 active Not Available Not Available Not Avai lable fluticasone propionate 50 mcg/actuatio n nasal spray,suspen marce INHALE 1 SPRAY INTRANASALL Y TWICE A DAY NEEDED FOR 30 DAYS. active Not Available Not Available No t Available Ventolin HFA 90 mcg/actuatio n aerosol inhaler INHALE 2 PUFFS INTO LUNGS EVERY 4 TO 6 HOURS NEEDED FOR 10 DAYS. active Not Available Not Available No t Available Vitals Date Recorded Body weight Body mass index (BMI) Body height Oxygen saturation Oxygen saturation in Arterial blood by Pulse oximetry Pain severity - 0-10 verbal numeric rating [Score] - Reported Heart rate Respiratory rate Body temperature Systolic blood pressure Diastolic blood pressure Provider Name and Address Organization Details Last Updated DateTime 3 04483.4 g 36 kg/m2 162.56 cm 98 % 98 % 0 60 /min 20 /min 98.6 [degF] 121 mm[Hg] 84 mm[Hg] Angelia Dutch John PA - [facility] 3 16:59:09 Social History None recorded. Functional Status None recorded. Mental Status None recorded. Family History Relationship Description Onset Age of this Age Resolved Age Notes LastModified by Organization Details LastModified Time Father No current problems or disability [email or web address] Not available 10/26 16:57:43 Mother No current problems or disability [email or web address] Not available 10/26 16:57:43 Medical History No medical history recorded. Gynecological HistoryNo gynecological history recorded. Obstetrics History GPAL:G 0 P 0 0 0 0 Immunizations Vaccine Type Date Status Note Provider Nam e and Address Organization Details Recorded Time COVID-19, mRNA, LNP-S, PF, 30 mcg/0.3 mL dose 01/18/2021 completed Angelia Anand null, PA - [facility] 10/26/2022 16:57:27 COVID-19, mRNA, LNP-S, PF, 30 mcg/0.3 mL dose 02/08/2021 completed Angelia Dutch John null, PA - [facility] 10/26/2022 16:57:27 COVID-19, mRNA, LNP-S, PF, 30 mcg/0.3 mL dose, britney-sucrose 10/18/2021 completed Angelia Anand null, PA - [facility] 10/26/2022 16:57:27 Past Encounters Encounter ID Performer Location Encounter Start Date Encounter Closed Date Diagnosis/Indication Diagnosis SNOMED-CT Code Diagnosis ICD10 Code Diagnosis Note [id number] [facility] [address] [place] [address] 07/07/2020 12:41:20 07/07/2020 17:45:59 [id number] Dilan Tao NP [facility] [address] [place] [address] 10/26/2022 14:43:22 10/26/2022 17:53:39 Acute bronchitis 09553369 J20.9 Health Concerns Section Related Observation LastModified by Organization Detai ls LastModified Time None Recorded Concern Status LastModified by Organization Details LastModified Time None Recorded Advance Directives Directive None Recorded Payers Insurance Date Sequence Insurance Name Policy Number Policy Garrido Covered Member ID Garrido Member ID Guarantor Name 10/26/2022 1 [facility] - [employer] (MEDICAID REPLACEMENT - HMO) TONYA Tian [id number] Simona Tian Notes Date Note Type Note Provider Name and Address Organization Details Recorded Time 10/26/2022 text/html Sinus Complaints UCReported bypatient.Location:s inus pressure Associated Symptoms:no fever; no difficulty breathing; no nausea or vomiting; no sore throat; no nasal passage blockage; no ear fullness; no nasal itching; no eye itching; no cough; no dizziness;nasal discharge from nostrils;Post nasal drip Onset/Timing:worse in am Quality:minimal discomfort;worsening ; clear Duration:constant Severity:moderate Context:no recent sick contacts; not worse with seasonal allergen exposure;recent upper respiratory infection Risk Factors:no history of nasal trauma;current smoking or tobacco use Aggravating factors:worse during an upper respiratory infection (a cold) Prior Treatmentnasal saline rinse Dilan Tao NP [address] [facility] [place], [address], [place] - [facility] 10/26/2022 17:50:42 OBGyn Episode No OBEpisode recorded.
== END 2025-01-26 11:17 | disposition home or self-care (01) ==
PROVIDERS: PCP Internal Medicine; Visit Provider Nurse Practitioner
DX: Z01.818 Encounter for other preprocedural examination (principal); Z12.11 Encounter for screening for malignant neoplasm of colon; G47.30 Sleep apnea, unspecified
CPT/HCPCS: 99202

== ENCOUNTER → 2025-01-26 10:29 | Outpatient (BNVA) | payer OTHER, SELFPAY | PROVIDERS: PCP Internal Medicine; Visit Provider Nurse Practitioner | DX: Z01.818 Encounter for other preprocedural examination (principal); G47.30 Sleep apnea, unspecified; K64.9 Unspecified hemorrhoids | CPT/HCPCS: 99202 ==

== ENCOUNTER 2025-05-24 13:04 | Outpatient (AMB) | payer OTHER, SELFPAY ==
--- NOTE | 2025-05-24 13:05 | A.OFFPC_ITS ---
Vital Signs 05/24/25 13:06 Height 5 ft 4 in Weight 215 lb BMI 36.9 BP 128/76 Blood Pressure Location Lt brachial Position Sitting Respiration 18 Pulse 70 Pulse Source Pulse Oximeter Temp 98.6 F Temp Source Oral Pulse Oximetry (%) 98 Oxygen Delivery Method Room Air Intake Visit Reasons: Annual Intake Note: Pt is here today for PE. Allergies No Known Drug Allergies (NO KNOWN DRUG ALLERGIES) Allergy (Mild, Unverified 05/24/25 13:18) NONE Medication List - Last Reconciled 05/24/25 by Yamilex Watson MD baclofen 10 mg PO BID hydrocortisone 2.5% (Proctosol HC) 1 appl [place] BID meloxicam 15 mg PO DAILY sodium,potassium,mag sulfates 17.5-3.13-1.6 gram (Suprep Bowel Prep Kit) 480 mL orally; FOR COLONOSCOPY PREP Tobacco use date assessed: 05/24/25 Dental Screening Dental Screen Date: 05/24/25 Did you have a dental visit in the last 12 months?: Yes Did you have a dental problem in the last 6 months where you did not have access to dental care?: No Was dental information given to patient?: Patient has dentist HPI Annual HPI Details Patient presents for physical. She complains of chronic lower back pain worse when standing or walking for long time . she denies any pain, weakness or numbness in lower extremities, change in bowel or bladder function. Patient is interested in physical therapy [facility] Medical History (Updated 05/24/25 @ 13:35 by Yamilex Watson MD) Annual physical exam Upper respiratory tract infection Colon cancer screening Submandibular gland swelling Family History (Updated 01/26/25 @ 10:39 by YASH Jaramillo) Father Prostate cancer Social History Housing: House Patient Tobacco Use Status: Current someday Tobacco user Cigarettes Per Day: 2 Years Smoked: 16 years old Packs per year/per ci.00 e-Cigarette/Vaping Use: Never Used service: No Current occupational status: employed Cognitive needs: No Hearing needs: No Vision needs: No Questionnaire PHQ-9 Over the last 2 weeks, how often have you been bothered by any of the following problems? 1. Little interest or pleasure in doing things: not at all 2. Feeling down, depressed, or hopeless: nearly every day 3. Trouble falling or staying asleep, or sleeping too much: several days 4. Feeling tired or having little energy: not at all 5. Poor appetite or overeating: not at all 6. Feeling bad about yourself - or that you are a failure or have let yourself or your family down: not at all 7. Trouble concentrating on things, such as reading the newspaper or watching television: not at all 8. Moving or speaking so slowly that other people could have noticed. Or the opposite - being so fidgety or restless that you have been moving around a lot more than usual: not at all 9. Thoughts that you would be better off or of hurting yourself in some way: not at all Total score: 4 Depression Screening Interpretation: Negative Depression Screening Done: Yes 80724 - PHQ-9 Billing: Yes Source: Developed by Drs. Sebastian Philippe, Stephanie Browne, Yung Guido and colleagues, with an educational radha from [employer]. Thrive Questionnaire Date Thrive assessed: 05/21/25 I am a: Patient What is your living situation today?: I have a steady place to live Within the past 12 months, did the food you bought not last and you didn't have the money to get more?: I choose not to answer this question Within the past 12 months, did you worry whether your food would run out before you got money to buy more?: I choose not to answer this question Do you have trouble paying for medicines?: I choose not to answer this question Do you have trouble getting transportation to medical appointments?: I choose not to answer this question Do you have trouble paying your heating and electricity bill?: I choose not to answer this question Do you have trouble taking care of your child, family member or friend?: I choose not to answer this question Do you have trouble with day-to-day activities such as bathing, preparing meals, shopping, managing finances, etc.?: I choose not to answer this question Are you currently unemployed and looking for a job?: I choose not to answer this question Are you interested in more education?: I choose not to answer this question Please select the resources that you would like help with: None Currently or been in a relationship where the following occur: I choose not to answer THRIVE Score: 0 AUDIT C Alcohol Use Questionnaire (AUDIT-C) 1. How often do you have a drink containing alcohol?: Monthly or less 2. How many drinks containing alcohol do you have on a typical day when you are drinking?: 1 or 2 3. How often do you have six or more drinks on one occasion?: Never Total Score: 1 JEAN PAUL-7 AMB Questionnaire JEAN PAUL-7 Date JEAN PAUL - 7 assessed: 05/24/25 Feeling nervous, anxious, or on edge: 0 = Not at all Not being able to stop or control worryin = Not at all Worrying too much about different things: 0 = Not at all Trouble relaxin = Not at all Being so restless that it is hard to sit still: 0 = Not at all Becoming easily annoyed or irritable: 0 = Not at all Feeling afraid as if something awful might happen: 0 = Not at all Total JEAN PAUL-7 score (0-4 normal; 5-9 mild; 10-14 moderate; 15-21 severe): 0 Source: Developed by Drs. Sebastian Philippe, Stephanie Browne, Yung Guido and colleagues, with an educational radha from [employer]. JEAN PAUL-7 Assessment Billing JEAN PAUL-7 Assessment Tool: JEAN PAUL-7 Assessment 95478 Review of Systems Const All systems reviewed & are unremarkable except as noted in HPI and below Eyes Reports no additional complaints ENT Reports no additional complaints Card Reports no additional complaints Resp Reports no additional complaints GI Reports no additional complaints Reports no additional complaints Physical exam (Primary Care) Vital Signs: Last Vital Signs Temp 98.6 F 05/24/25 13:06 Pulse 70 05/24/25 13:06 Resp 18 05/24/25 13:06 BP 128/76 05/24/25 13:06 Pulse Ox 98 05/24/25 13:06 Oxygen Delivery Method Room Air 05/24/25 13:06 BMI result Body Mass Index 36.9 Tobacco/Smoking Status: Tobacco use Status Tobacco use date assessed 05/24/25 05/24/25 13:06 Patient Tobacco Use Status Current someday Tobacco 05/24/25 13:06 e-Cigarette/Vaping Use Never Used 05/24/25 13:06 PHQ-9: PHQ-9 Score PHQ-9: Total score 4 05/24/25 13:21 Depression Screening Interpretation: Negative Thrive Assessment: Date of Thrive Assessment Date Thrive assessed 05/21/25 05/24/25 13:06 Currently or been in a relationship where the following occur: I choose not to answer Const General: no acute distress HENMT Head: Yes normal to inspection Face and sinus: Yes normal facial exam Mouth: Normal oral and palatal mucosa present Throat: Yes posterior oropharynx normal Eyes General: appearance normal, both eyes and all related structures Neck Neck: Yes no lymphadenopathy and Yes supple Resp Effort & Inspection: normal respiratory effort Auscultation: clear to auscultation bilaterally Cardio Rhythm: regular rhythm Heart sounds: S1 normal heart sound present and S2 normal heart sound present GI Inspection: Yes normal to inspection Palpation (GI): Soft to palpation Percussion: Yes normal to percussion Auscultation: normal bowel sounds Coding Level of Care Code Est Pt Prev Care 40-64y(70219) Diagnoses Sciatica M54.30 Annual physical exam Z00. Additional Codes JEAN PAUL-7 Assessment Billing - JEAN PAUL-7 Assessment Tool: JEAN PAUL-7 Assessment 55160 ([id number]) PHQ-9 - 56835 - PHQ-9 Billing: Yes ([id number]) Assessment & Plan Assessment & Plan (1) Sciatica: Code(s): M54.30 - Sciatica, unspecified side Category: Medical Plan: Patient will schedule an appointment for physical (2) Annual physical exam: Code(s): Z00.00 - Encounter for general adult medical examination without abnormal findings Category: Medical Plan: Well-balanced diet regular physical activity discussed with the patient she will return for fasting blood work. Cologuard will be checked for colon cancer screening patient is up-to-date with the mammogram and had negative Pap smear 4 years ago Orders: Orders Comprehensive Met. Panel Today Z00.00 - Encounter for general adult medical examination without abnormal findings Complete Blood Count Auto Diff Today Z00.00 - Encounter for general adult medical examination without abnormal findings Lipid Panel Today Z00.00 - Encounter for general adult medical examination without abnormal findings Vitamin D 25-OH Total Today Z00.00 - Encounter for general adult medical examination without abnormal findings UA w Microscopic Today Z00.00 - Encounter for general adult medical examination without abnormal findings Referrals Cologuard Test Z12.11 - Encounter for screening for malignant neoplasm of colon, Z12.12 - Encounter for screening for malignant neoplasm of rectum
[2025-05-24 13:06] VITALS: BP 128/76; PULSE 70; RESP 18; TEMP 37; O2SAT 98; BMI 36.9
--- OUTSIDE RECORDS SUMMARY | 2025-05-24 17:05 | XMS_ITS ---
Author Name [facility] Organization Unknown Care Team Organization Name Specialty Phone Email Start Date End Da te [facility] Jeff Alexis Primary [facility] 07/21/202204/13
== END 2025-05-24 13:41 | disposition home or self-care (01) ==
LOC: HO.HMCC 13:04
PROVIDERS: PCP Internal Medicine; Visit Provider Internal Medicine
DX: M54.30 Sciatica, unspecified side (principal); Z00.00 Encounter for general adult medical examination without abnormal findings

== ENCOUNTER → 2025-05-24 13:04 | Outpatient (BNVA) | payer OTHER, SELFPAY | PROVIDERS: PCP Internal Medicine; Visit Provider Internal Medicine | DX: Z00.00 Encounter for general adult medical examination without abnormal findings (principal); M54.40 Lumbago with sciatica, unspecified side; G89.29 Other chronic pain; Z13.31 Encounter for screening for depression; Z13.39 Encounter for screening examination for other mental health and behavioral disorders | CPT/HCPCS: 96127; 99396 ==

== ENCOUNTER 2025-05-28 11:08 | Outpatient (REF) | payer OTHER, SELFPAY ==
[2025-05-28 13:27] LABS: MANUAL DIFF FLAG NO
[2025-05-28 13:33] LABS: Hematocrit 43.7 % (37.0-47.0); Hemoglobin 14.8 g/dl (12.0-16.0); Imm Gran Abs Auto 0.01 X10*3/uL (0.00-0.03); Imm Gran Pct Auto 0.2 % (0.0-0.4); Lymphocytes Absolute Auto 1.8 X10*3/uL (1.2-4.9); Mean Corpuscular HGB Conc 33.9 g/dl (31.0-35.0); Mean Corpuscular Hemoglobin 30.3 pg (27.0-33.0); Mean Corpuscular Volume 89.5 fL (80.0-98.0); NRBC Abs Auto 0.000 X10*3/uL (0.0-0.012); NRBC Pct Auto 0.0 /100WBC (0.0-0.2); Platelet Count 285 X10*3/uL (160-400); Red Blood Count 4.88 X10*6/uL (4.20-5.50); White Blood Count 5.0 X10*3/uL (4.8-10.8)
[2025-05-28 13:49] LABS: Alanine Aminotransferase 51 U/L (0-31); Albumin Level 4.3 g/dL (3.5-5.0); Alkaline Phosphatase 63 U/L (39-117); Anion Gap 11 (12-20); Aspartate Amino Transferase 35 U/L (5-31); Blood Urea Nitrogen 18 mg/dL (9-16); Calcium 9.4 mg/dL (8.4-10.2); Carbon Dioxide 27 mmol/L (22-29); Chloride 110 mmol/L (96-108); Cholesterol 231 mg/dL (<200); Estimated Glomerular Filt Rate > 60; HDL Cholesterol 53 mg/dL (>40); Potassium 4.5 mmol/L (3.3-5.1); Sodium 143 mmol/L (135-145); Total Protein 7.0 g/dL (6.5-8.0); Triglycerides 91 mg/dL (<150)
[2025-05-28 14:04] LABS: Appearance Urine Turbid; Glucose Urine UA Negative (Negative); PH 5.5 (5.0-9.0); Specific Gravity - Urine 1.020 (1.005-1.025); UMIC TRIGGER UA YES
== END 2025-05-28 11:09 | disposition home or self-care (01) ==
LOC: HO.HMGCLDS 11:08
PROVIDERS: PCP Internal Medicine; Visit Provider Internal Medicine
DX: Z00.00 Encounter for general adult medical examination without abnormal findings (principal)
CPT/HCPCS: 36415; 80053; 80061; 81001; 82306; 85025